=== PATIENT | male | born 1960 | race Caucasian/White ===

== ENCOUNTER 2021-10-26 17:41 | Emergency (ER) | payer BC, SELFPAY ==
--- NOTE | ~2021-10-26 | XR_ITS ---
EXAMINATION: XR chest 2V Exam Date/Time: 10/26/2021 18:32 CDT CLINICAL HISTORY: cough fever x 1 week/productive cough,non smoker Comparison: 10/19/2012. RESULT: Lines, tubes, and devices: None. Lungs and pleura: Ill-defined subsegmental opacity in the right lower lobe. Cardiomediastinal silhouette: Stable cardiomediastinal silhouette. Other: No acute osseous or upper abdominal finding. IMPRESSION: Right lower lobe opacity may reflect pneumonia in the appropriate clinical context. Reviewed, dictated and finalized at location K. IMPRESSION: Right lower lobe opacity may reflect pneumonia in the appropriate clinical cont ext.
[2021-10-26 17:59] VITALS: BP 150/72; PULSE 95; RESP 18; TEMP 36.8; O2SAT 99
--- NOTE | 2021-10-26 18:06 | ED.URI ---
HPI - URI/Sore Throat General Chief Complaint: Upper Respiratory Infection Stated Complaint: fever,congestion,cough Time Seen by Provider: 10/26/21 18:06 Source: patient Mode of arrival: ambulatory Limitations: no limitations History of Present Illness HPI Narrative: Cornelius Gutiérrez is a 60 yo male with a PMH of HTN, who has been ill with cough and intermittent fever of 100.5. Tested negative on Monday for COVID Related Data Home Medications Medication Instructions Recorded Confirmed lisinopril [Zestril] 5 mg PO DAILY 10/26/21 10/26/21 Allergies Allergy/AdvReac Type Severity Reaction Status Date / Time No Known Allergies Allergy Verified 10/26/21 18:09 Review of Systems Review of Systems: CONSTITUTIONAL: Has had fever, chills, sweats. EYES: Denies visual changes, redness, discharge. ENT: Denies rhinorrhea, congestion, sore throat, otalgia. CARDIOVASCULAR: Denies chest pain, palpitations, edema. RESPIRATORY: Denies dyspnea, wheezing, has cough GASTROINTESTINAL: Denies abdominal pain, nausea, vomiting, diarrhea. GENITOURINARY: Denies dysuria, hematuria, abnormal discharge SKIN: Denies rash or itching. NEUROLOGIC: Denies numbness, or focal weakness. PSYCHIATRIC: Denies anxiety or depression. [facility] Past Medical History Medical History HTN (hypertension) Social History Social History (Updated 10/26/21 @ 18:20 by Nena Rm CNP) Smoking status: Former smoker Alcohol intake: current Comments At time of signature, I agree with nursing past medical, surgical, social and family history. There is no relevant family history pertinent to the presenting complaint. BP elevated at this visit Exam Narrative: GENERAL: This is a well-nourished, well-developed patient, in mild distress. HEAD: normocephalic, atraumatic. EYES:. Sclera clear/white. Vision is grossly intact. EARS: External ears normal, auditory canals clear and without drainage, TMs normal without perforation. Hearing grossly intact. NOSE: External nose normal without nasal discharge, nares without redness, no rhinorrhea. THROAT: Mucous membranes moist, posterior pharynx NECK: Neck supple, non-tender CARDIOVASCULAR: Regular rate and rhythm without murmurs, gallops, or rubs. RESPIRATORY: Clear to auscultation. Breath sounds equal bilaterally. No wheezes, rales, or rhonchi. No cough on exam GASTROINTESTINAL: Not performed SKIN: warm, intact with no suspicious lesions or rash, good texture and turgor. NEURO: awake, alert, and oriented to person, place and time. There were no obvious focal neurologic abnormalities. Steady gait EXTREMITIES: Normal range of motion. BACK: Nontender without deformity Course Course Emergency Course: Patient comes with complaints of cough and fever of 100.5 he has been sick for almost a week Flu is negative COVID is negative Discussed possibility of bronchitis-refuses prednisone, wants only antibiotics- chest Xray ordered. Chest x-ray shows right lower lobe opacity which may reflect pneumonia Started on Tessalon Perles ,albuterol inhaler, azithromycin prescribed Level of Care: Express Care Visit Vital Signs Vital signs: Vital Signs Temperature 98.3 F 10/26/21 17:59 Pulse Rate 95 10/26/21 17:59 Respiratory Rate 18 10/26/21 17:59 Blood Pressure 150/72 H 10/26/21 17:59 Pulse Oximetry 99 10/26/21 17:59 Temperature 98.3 F 10/26/21 17:59 Pulse Rate 95 10/26/21 17:59 Respiratory Rate 18 10/26/21 17:59 Blood Pressure 150/72 H 10/26/21 17:59 Pulse Oximetry 99 10/26/21 17:59 MDM - URI/Sore Throat Differential Diagnosis Differential diagnosis: Likely upper respiratory infection, viral infection, bronchitis, influenza, pharyngitis and other Lab Data Labs: Lab Results 10/26/21 Range/Units 18:10 POC SARS CoV-2 Ag Negative (Negative) Influenza A Screen Negative
== END 2021-10-26 19:06 | disposition home or self-care (01) ==
PROVIDERS: Emergency Provider Nurse Practitioner; PCP Internal Medicine
DX: J18.9 Pneumonia, unspecified organism (principal); I10 Essential (primary) hypertension; Z87.891 Personal history of nicotine dependence; Z20.822 Contact with and (suspected) exposure to COVID-19
CPT/HCPCS: 71046; 87426; 87804; 99213; C9803; G0463